=== PATIENT | female | born 1990 | race Caucasian/White ===

== ENCOUNTER 2018-06-07 23:47 | Emergency (ER) | payer MEDICAID ==
[~2018-06-07] VITALS: Ht 167.6 cm; Wt 86.8 kg
[2018-06-07 23:53] VITALS: Ht 167.6 cm; Wt 86.8 kg
[2018-06-08] MEDS ORDERED: VISTARIL50 MG PO (00:08)
[2018-06-08] MEDS ORDERED: PERMETHRIN60 GM TOPICAL (00:08)
[2018-06-08 00:15] VITALS: BP 136/86
== END 2018-06-08 00:12 | disposition home or self-care (01) ==
LOC: D.ER 23:47
DX: B86 Scabies (principal)